=== PATIENT | female | born 1950 | race Two or more races ===

== ENCOUNTER 2025-03-03 22:24 | Inpatient (IN) | payer MEDICARE, MEDICAID ==
[~2025-03-03] VITALS: Ht 147.3 cm; Wt 63.1 kg
[2025-03-03 23:04] LABS: Basophils # (auto) 0.1 10 ^3/uL (0-0.2); Basophils % (auto) 0.8 % (0.0-2.0); Eosinophils # (auto) 0.2 10 ^3/uL (0-0.8); Eosinophils % (auto) 2.5 % (0.0-7.0); Hematocrit 47.2 % (36.0-46.0); Hemoglobin 15.9 g/dL (12.2-16.2); Lymphocytes # (auto) 3.4 10 ^3/uL (0.4-5.4); Lymphocytes % (auto) 45.3 % (10.0-50.0); Mean Corpuscular Hemoglobin 31.6 pg (28.0-32.0); Mean Corpuscular Hgb Conc. 33.8 g/dL (32.0-36.0); Mean Corpuscular Volume 93.5 fL (80.0-100.0); Monocytes # (auto) 0.4 10 ^3/uL (0-1.3); Monocytes % (auto) 5.9 % (0.0-12.0); Neutrophils # (auto) 3.4 10 ^3/uL (1.6-8.6); Neutrophils % (auto) 45.5 % (37.0-80.0); Platelet Count (auto) 129 10^3/uL (140-450); Red Blood Cells 5.05 10^6/uL (4.0-5.20); Red Cell Distribution Width 14.5 % (11.8-14.3); White Blood Cell 7.5 10^3/uL (4.4-10.8)
[2025-03-03 23:10] LABS: Potassium 4.2 mmol/L (3.5-5.1)
[2025-03-03 23:11] LABS: Anion Gap 7 (5-15); Calcium 9.4 mg/dL (8.7-10.4); Carbon Dioxide 23 mmol/L (20-31)
[2025-03-03 23:12] LABS: Chloride 93 mmol/L (98-107); Sodium 123 mmol/L (136-145)
[2025-03-03 23:16] LABS: BUN/Creatinine Ratio 8.1 (10.0-20.0); Blood Urea Nitrogen 9 mg/dL (9-23)
[2025-03-03 23:18] LABS: Glucose 518 mg/dL (74-106)
--- NOTE | 2025-03-03 23:23 | DVH ---
CHEST RADIOGRAPH Indication: chest pain Technique: Single frontal view of the chest was obtained Comparison: None FINDINGS: Lines and Tubes: None Lungs: Clear Pleura: No effusion. No pneumothorax. Cardiomediastinal contours: Postsurgical changes of the mediastinum. Bones: Unremarkable IMPRESSION: Clear lungs.
--- NOTE | 2025-03-03 23:59 | ED.PDOC ---
History of Present Illness HPI Comments 74-year-old woman with a history of coronary artery disease status post CABG who presents with 1 day of left-sided intermittent 7/10 sharp chest pain associated with shortness of breath and generalized weakness. The pain occurs at rest. 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 She denies any fever chills nausea vomiting diarrhea dysuria or polyuria sick contacts or recent travel Chief Complaint: Chest Pain Time Seen by MD: 22:28 Primary Care Provider: ASIYA Allergies: Coded Allergies: Sulfa Antibiotics (Verified Allergy, Severe, 03/03/25) Mode of Arrival: Wheelchair Past Medical History PAST MEDICAL HISTORY: Arthritis, DM, HTN Surgical History: Denies all surgeries HAIR CLIPPER POWER History: No Pertinent HAIR CLIPPER POWER History Family History Family History: Unknown Social History Smoker: Non-Smoker Alcohol: Denies ETOH Use Drugs: Denies Drug Use All Other Systems: Reviewed and Negative Physical Exam General Appearance: Normal HEENT: Pharynx Normal Neck: Normal Inspection Respiratory: No Respiratory Distress Cardiovascular: No Edema Breast Exam: Deferred Gastrointestinal: NOT DONE Genitalia: Deferred Pelvic: Deferred Rectal: Deferred Extremities: No pedal edema Neurologic: No Motor Deficits Cerebellar Function: NOT DONE Reflexes: NOT DONE Skin: Normal Color Lymphatic: NOT DONE Was a procedure done? Was a procedure done?: No Differential Dx Considerations may include: ACS, CVA, pneumonia, viral syndrome X-Ray, Labs, Meds, VS Vital Signs Date Time Temp Pulse Resp B/P (MAP) Pulse Ox O2 Delivery O2 Flow Rate FiO2 03/03/25 23:31 65 03/03/25 22:32 66 03/03/25 22:29 98.3 68 16 127/70 (89) 9 98.3 Lab Test 03/03/25 23:48 03/03/25 22:41 Range/Units Troponin I High Sensitivity Pending 4 </=34 ng/L White Blood Count 7.5 4.4-10.8 10^3/uL Red Blood Count 5.05 4.0-5.20 10^6/uL Hemoglobin 15.9 12.2-16.2 g/dL Hematocrit 47.2 H 36.0-46.0 % Mean Corpuscular Volume 93.5 80.0-100.0 fL Mean Corpuscular Hemoglobin 31.6 28.0-32.0 pg Mean Corpuscular Hemoglobin Concent 33.8 32.0-36.0 g/dL Red Cell Distribution Width 14.5 H 11.8-14.3 % Platelet Count 129 L 140-450 10^3/uL Mean Platelet Volume 8.4 6.9-10.8 fL Neutrophils (%) (Auto) 45.5 37.0-80.0 % Lymphocytes (%) (Auto) 45.3 10.0-50.0 % Monocytes (%) (Auto) 5.9 0.0-12.0 % Eosinophils (%) (Auto) 2.5 0.0-7.0 % Basophils (%) (Auto) 0.8 0.0-2.0 % Neutrophils # (Auto) 3.4 1.6-8.6 10 ^3/uL Lymphocytes # (Auto) 3.4 0.4-5.4 10 ^3/uL Monocytes # (Auto) 0.4 0-1.3 10 ^3/uL Eosinophils # (Auto) 0.2 0-0.8 10 ^3/uL Basophils # (Auto) 0.1 0-0.2 10 ^3/uL Nucleated Red Blood Cells 0.0 % Sodium Level 123 L 136-145 mmol/L Potassium Level 4.2 3.5-5.1 mmol/L Chloride Level 93 L 98-107 mmol/L Carbon Dioxide Level 23 20-31 mmol/L Anion Gap 7 5-15 Blood Urea Nitrogen 9 9-23 mg/dL Creatinine 1.11 H 0.550-1.02 mg/dL Glomerular Filtration Rate Calc 52 >90 mL/min BUN/Creatinine Ratio 8.1 L 10.0-20.0 Serum Glucose 518 *H 74-106 mg/dL Calcium Level 9.4 8.7-10.4 mg/dL Time of 1ST Reevaluation: 23:57 Reevaluation 1ST: Unchanged Patient Education/Counseling: Diagnosis, Treatment Family Education/Counseling: No Family Present Departure 1 Departure Time of Disposition: 23:57 (Patient presented with chest pain that was concerning for possible STEMI, ACS, PE, Pneumonia, Muscle Strain, COPD, Dissection. Data: 1. I ordered and reviewed the result of at least 3 labs including a CBC, BMP, and Troponin. 2. I independently interpreted the following tests: EKG which shows sinus arrhythmia and Chest X-ray which shows benign chest.Risk:This patient has a high risk of morbidity due to further diagnostic testing or treatment and may suffer from an acute cardiac or respiratory disorder. Workup reveals concern for ACS, uncontrolled diabetes, hyponatremia and patient should be admitted for further workup and possible expert consultation. ) Impression: Primary Impression: Acute chest pain Additional Impressions: Hyponatremia Hyperglycemia Shortness of breath Disposition: ADMITTED INPATIENT Admit to: Tele Condition: Guarded Critical Care Note Critical Care Time?: Yes Critical care comment: Acute chest pain Authorized and Performed by: Elysia Del Rosario MD Total critical care time: Approximately 48 minutes Due to a high probability of clinically significant, life threatening deterioration, the patient required my highest level of preparedness to intervene emergently and I personally spent this critical care time directly and personally managing the patient. This critical care time included obtaining a history; examining the patient; pulse oximetry; ordering and review of studies; arranging urgent treatment with development of a management plan; evaluation of patient's response to treatment; frequent reassessment; and, discussions with other providers. This critical care time was performed to assess and manage the high probability of imminent, life-threatening deterioration that could result in multi-organ failure. It was exclusive of separately billable procedures and treating other patients and teaching time. Please see my other sections and the rest of the note for further information on patient assessment and treatment. Stability Stability form required: No Heart Score Heart Score: Heart Score Response (Comments) Value History Moderate Suspicious 1 EKG Repolarization Disturb 1 Age >65 2 Risk Factors >3 or Hx ASHD 2 Troponin 1-2 x's Normal limit 1 Total 7 ELYSIA DEL ROSARIO MD Mar 03, 2025 23:59
[2025-03-04] VITALS (16 sets, daily range): BP systolic 115–178; BP diastolic 44–73; PULSE 55–89; RESP 7–20; TEMP 97.1–98.3; O2SAT 95–98
[2025-03-04] MEDS: SODIUM CHLORIDE 0.9% 1,000 ML IV ONE
[2025-03-04] MEDS ORDERED: ONDANSETRON HCL 4 MG/2 ML VIAL IV PRN (00:30)
[2025-03-04] MEDS ORDERED: DEXTROSE (50%) 50ML SYRG IV PRN (00:30)
[2025-03-04] MEDS ORDERED: NITROGLYCERIN 0.4 MG SL TAB SL PRN (00:30)
[2025-03-04] MEDS ORDERED: ALBUTEROL SULF 2.5 MG/0.5ML(0.5%) NEB SOLN NEB PRN (00:30)
[2025-03-04] MEDS ORDERED: MORPHINE SULFATE INJ 2 MG/ml SYRG IV PRN (00:30)
[2025-03-04] MEDS: InsuLIN REG 1unit/0.01ml Soln (100units/ml) IV ONE (02:56)
--- NOTE | 2025-03-04 03:16 | ECG ---
[facility] Test Date: 2025-03-03 Test Time: 23:31:57 Pat Name: DANTE HERRERA Department: ED Room: 0251T Gender: F Purchasing Specialist: MINDY : 1950 Requested By: ELYSIA ALCARAZ Order Number: [id number] Reading MD: Erik Moore Measurements Intervals [place] Rate: 65 P: 30 NM: 159 QRS: -72 QRSD: 95 T: 84 QT: 396 QTc: 412 Interpretive Statements Sinus rhythm Inferior infarct, old Anterior infarct, old Electronically Signed On 03-04-2025 9:35:31 PDT by Erik Moore Please click the below link to view image of tracing.
--- NOTE | 2025-03-04 03:17 | ECG ---
[facility] Test Date: 2025-03-04 Test Time: 01:29:39 Pat Name: DANTE HERRERA Department: ED Room: 0251T Gender: F Test Preparation Tutor: MINDY : 1950 Requested By: ELYSIA ALCARAZ Order Number: [id number] Reading MD: Erik Moore Measurements Intervals [place] Rate: 61 P: 17 [place]: 162 QRS: -63 QRSD: 94 T: 77 QT: 428 QTc: 431 Interpretive Statements Sinus rhythm Inferior infarct, old Anterior infarct, old Electronically Signed On 03-04-2025 9:35:39 PDT by Erik Moore Please click the below link to view image of tracing.
[2025-03-04 03:57] LABS: Urine Bacteria FEW /hpf (None Seen); Urine Blood Negative /uL (Negative); Urine Clarity Clear (Clear); Urine Color Colorless (Yellow); Urine Protein, UAD Negative (Negative); Urine Specific Gravity 1.021 (1.001-1.035); Urine Squamous Epithelial Cell FEW /hpf (<5); Urine Urobilinogen Normal (Negative); Urine WBC 39 /HPF (0-5)
--- NOTE | 2025-03-04 04:13 | DVHHP2 ---
History of Present Illness Reason for Visit: Chest pain History of Present Illness 74-year-old female presents for evaluation of chest pain. Patient endorses a one day history of left-sided sharp nonradiating chest pain with associated fatigue shortness for breath. Denies nausea or vomiting. No cough or fever. No other acute complaints. Past Medical History Diabetes mellitus, CAD, hypertension Family History Noncontributory Smoke: No ALCOHOL: none Drugs: None Lives: with Family Review of Systems Review of Systems Review of systems are currently negative otherwise addressed in HPI. Allergies: Coded Allergies: Sulfa Antibiotics (Verified Allergy, Severe, 03/03/25) Medications Current Medications Medications Dose Ordered Sig/Yadi Route Start Time Stop Time Status Last Admin Dose Admin Metoprolol Tartrate 25 mg BID PO 03/04/25 10:00 Atorvastatin Calcium 80 mg HS PO 03/04/25 22:00 Albuterol 2.5 mg Q6HPRN PRN NEB 03/04/25 00:30 Memantine 10 mg Q12HR PO 03/04/25 10:00 Aspirin 81 mg DAILY PO 03/04/25 10:00 Diagnostic Test (Pha) 1 strip IQ4HR 03/04/25 04:00 Insulin Human Regular IQ4HR SC 03/04/25 04:00 Dextrose 50 ml UD PRN IV 03/04/25 00:30 Ondansetron HCl 4 mg Q4HP PRN IV 03/04/25 00:30 Acetaminophen 650 mg Q6HP PRN PO 03/04/25 00:30 Nitroglycerin 0.4 mg Q5MINP PRN SL 03/04/25 00:30 Morphine Sulfate 2 mg Q30M PRN IV 03/04/25 00:30 Exam Vital Signs Vital Signs Date Time Temp Pulse Resp B/P (MAP) Pulse Ox O2 Delivery O2 Flow Rate FiO2 03/04/25 03:23 98.1 72 18 132/97 (109) 96 98.1 03/04/25 01:40 21 03/04/25 01:00 Nasal Cannula* 1 Exam Gen: 74-year-old female in no apparent distress Skin: Warm, dry, normal color and texture, no rash. HEENT: Normocephalic atraumatic, mucous membranes moist and pink. Neck: Cervical and supraclavicular nodes normal without enlargement, trachea is midline, thyroid gland is normal without masses. Pulmonary: Clear to auscultation and percussion bilaterally. Cardiac: Regular rate and rhythm. No murmur Abdomen: Soft, nontender, nondistended, bowel sounds present all 4 quadrants, no guarding, no rigidity, no organomegaly. Extremities: No cyanosis, clubbing, no edema Neuro: Cranial nerves II through XII grossly intact, normal affect and speech, no focal motor deficits. Labs/Xrays ORDERING PHYSICIAN: ELYSIA ALCARAZ MD PROCEDURE(s): CXRP - CHEST PORTABLE REASON: chest pain ORDER NUMBER(s): [id number], ACCESSION NUMBER(s): [id number] CHEST RADIOGRAPH Indication: chest pain Technique: Single frontal view of the chest was obtained Comparison: None FINDINGS: Lines and Tubes: None Lungs: Clear Pleura: No effusion. No pneumothorax. Cardiomediastinal contours: Postsurgical changes of the mediastinum. Bones: Unremarkable IMPRESSION: Clear lungs. Labs Test 03/04/25 03:30 03/04/25 02:06 03/04/25 01:36 03/03/25 22:41 Range/Units POC Glucose 427 *H 70-106 mg/dl Troponin I High Sensitivity 5 </=34 ng/L White Blood Count 7.5 4.4-10.8 10^3/uL Red Blood Count 5.05 4.0-5.20 10^6/uL Hemoglobin 15.9 12.2-16.2 g/dL Hematocrit 47.2 H 36.0-46.0 % Mean Corpuscular Volume 93.5 80.0-100.0 fL Mean Corpuscular Hemoglobin 31.6 28.0-32.0 pg Mean Corpuscular Hemoglobin Concent 33.8 32.0-36.0 g/dL Red Cell Distribution Width 14.5 H 11.8-14.3 % Platelet Count 129 L 140-450 10^3/uL Mean Platelet Volume 8.4 6.9-10.8 fL Neutrophils (%) (Auto) 45.5 37.0-80.0 % Lymphocytes (%) (Auto) 45.3 10.0-50.0 % Monocytes (%) (Auto) 5.9 0.0-12.0 % Eosinophils (%) (Auto) 2.5 0.0-7.0 % Basophils (%) (Auto) 0.8 0.0-2.0 % Neutrophils # (Auto) 3.4 1.6-8.6 10 ^3/uL Lymphocytes # (Auto) 3.4 0.4-5.4 10 ^3/uL Monocytes # (Auto) 0.4 0-1.3 10 ^3/uL Eosinophils # (Auto) 0.2 0-0.8 10 ^3/uL Basophils # (Auto) 0.1 0-0.2 10 ^3/uL Nucleated Red Blood Cells 0.0 % Sodium Level 123 L 136-145 mmol/L Potassium Level 4.2 3.5-5.1 mmol/L Chloride Level 93 L 98-107 mmol/L Carbon Dioxide Level 23 20-31 mmol/L Anion Gap 7 5-15 Blood Urea Nitrogen 9 9-23 mg/dL Creatinine 1.11 H 0.550-1.02 mg/dL Glomerular Filtration Rate Calc 52 >90 mL/min BUN/Creatinine Ratio 8.1 L 10.0-20.0 Serum Glucose 518 *H 74-106 mg/dL Calcium Level 9.4 8.7-10.4 mg/dL Assessment/Plan Assessment/Plan Assessment Chest pain rule out ACS Uncontrolled diabetes mellitus Hypertension Plan Admit the patient to telemetry to the hospitalist Echocardiogram pending Resume home medications Continue treatment per orders. Plan discussed with: Patient My Orders Orders - YUN RICHARDSON AGACNLisa Procedure Category Date Status Time Metoprolol Tartrate PHA 03/04/25 In Process Tablet (Lopressor Ta 10:00 Atorvastatin (Lipitor) PHA 03/04/25 In Process 22:00 Albuterol Medneb PHA 03/04/25 In Process (Ventolin Medneb) 00:30 Memantine Tablet PHA 03/04/25 In Process (Namenda Tablet) 10:00 Aspirin Tablet PHA 03/04/25 In Process 10:00 Basic Metabolic Panel LAB 03/05/25 Verified 04:00 Glucose Blood PHA 03/04/25 In Process (Accu-Chek Comfort 04:00 Insulin R (Human) PHA 03/04/25 In Process (Insulin R) 04:00 Dextrose 50% Syringe PHA 03/04/25 In Process 00:30 Admit ADMIT 03/04/25 Transmitted 00:24 Ondansetron Hcl PHA 03/04/25 In Process (Zofran) 00:30 Cardiac DIET 03/04/25 Transmitted Diet-2gna,Lofat,Lochol Breakfast Echo 2d Mode Cardiac US 03/04/25 Logged DOP 00:24 Condition: Fair [facility] 03/04/25 In Process 00:24 Acetaminophen Tablet PHA 03/04/25 In Process (Tylenol Tablet) 00:30 Bedrest With Bathroom [facility] 03/04/25 In Process Privileg 00:24 Nitroglycerin [facility] 03/04/25 In Process Sublingual (Ntrostat 00:30 Morphine Sulfate PHA 03/04/25 In Process Injection 00:30 Stat Ekg For Chest [facility] 03/04/25 In Process Pain 00:24 Notify Md Of Changes [facility] 03/04/25 In Process From Base 00:24 Fishing Rod Marker For [facility] 03/04/25 In Process 24 Hours 00:24 Emergency Dysrhythmia [facility] 03/04/25 In Process Protocol 00:24 Rhythm Strips Once [facility] 03/04/25 In Process Every Shift 00:24 Oxygen By Nasal RT 03/04/25 Transmitted Cannula 00:24 Date of Service: Mar 04, 2025 Billing Provider: YUN RICHARDSON Common Visit Codes: [id number] INP/OBS CARE (MOD) YUN RICHARDSON Mar 04, 2025 04:13
[2025-03-04] MEDS: InsuLIN REG 1unit/0.01ml Soln (100units/ml) SC SCH (04:28)
[2025-03-04] MEDS: ACCU-CHEK COMFORT CURVE STRIP VI SCH (04:29)
[2025-03-04 04:39] LABS: HDL Cholesterol 53 mg/dL (40-59)
[2025-03-04 04:40] LABS: Cholesterol 199 mg/dL (< 200)
[2025-03-04 04:47] LABS: LDL Cholesterol 124 mg/dL (< 100); Triglycerides 175 mg/dL (< 150)
[2025-03-04] MEDS: cloNIDine HCL 0.1 MG TAB PO ONE (05:45)
[2025-03-04] MEDS ORDERED: METF-372 PO (05:54)
[2025-03-04] MEDS ORDERED: RISP4TAB53 PO (05:56)
[2025-03-04] MEDS ORDERED: DICL50TA2 PO (05:56)
[2025-03-04] MEDS ORDERED: MET25T PO (05:56)
[2025-03-04] MEDS ORDERED: DAPA1TAB4 PO (05:56)
[2025-03-04] MEDS ORDERED: ATOR-47 PO (05:56)
[2025-03-04] MEDS ORDERED: TRAZ-227 PO (05:56)
[2025-03-04] MEDS ORDERED: CARB0.5D8 EACHEYE (05:58)
[2025-03-04] MEDS ORDERED: ASPI-543 PO (05:58)
[2025-03-04] MEDS ORDERED: FERR325T24 PO (05:58)
[2025-03-04] MEDS ORDERED: DOCU-94 PO (05:58)
[2025-03-04] MEDS ORDERED: DIVA1TAB37 PO (05:58)
[2025-03-04] MEDS: MEMANTINE HCL 5 MG TAB PO SCH (09:45)
[2025-03-04] MEDS: ASPirin 81 mg TAB PO SCH (09:45)
[2025-03-04] MEDS: METOPROLOL TARTRATE 25 MG TAB PO SCH (09:46)
--- NOTE | 2025-03-04 12:07 | DVHPN2 ---
Subjective 74-year-old female with a history of type 2 diabetes, hypertension, coronary artery disease status post CABG comes with a chief complaint of chest pain for the last 4 days Troponins are negative Changes from previous H/P or p: Changes Objective Vitals Vital Signs Date Time Temp Pulse Resp B/P (MAP) Pulse Ox O2 Delivery O2 Flow Rate FiO2 03/04/25 09:46 64 132/44 03/04/25 09:00 97.6 16 95 97.6 03/04/25 08:00 Room Air* 0 21 Intake/Output Intake and Output 03/04/25 07:00 Intake Total 0 ml Balance 0 ml Intake Oral 0 ml General Appearance: Alert, Oriented X3, Cooperative, No acute distress Lungs: Clear to auscultation, Normal air movement Cardiovascular: Regular rate, Normal S1, Normal S2, No murmurs Abdomen: Normal bowel sounds, Soft, No tenderness Extremities: No edema Medications Current Medications Medications Dose Ordered Sig/Yadi Route Start Time Stop Time Status Last Admin Dose Admin Metoprolol Tartrate 25 mg BID PO 03/04/25 10:00 03/04/25 09:46 25 MG Atorvastatin Calcium 80 mg HS PO 03/04/25 22:00 Albuterol 2.5 mg Q6HPRN PRN NEB 03/04/25 00:30 Memantine 10 mg Q12HR PO 03/04/25 10:00 03/04/25 09:45 10 MG Aspirin 81 mg DAILY PO 03/04/25 10:00 03/04/25 09:45 81 MG Diagnostic Test (Pha) 1 strip IQ4HR 03/04/25 04:00 03/04/25 11:59 1 STRIP Insulin Human Regular IQ4HR SC 03/04/25 04:00 03/04/25 11:59 8 UNITS Dextrose 50 ml UD PRN IV 03/04/25 00:30 Ondansetron HCl 4 mg Q4HP PRN IV 03/04/25 00:30 Acetaminophen 650 mg Q6HP PRN PO 03/04/25 00:30 Nitroglycerin 0.4 mg Q5MINP PRN SL 03/04/25 00:30 Morphine Sulfate 2 mg Q30M PRN IV 03/04/25 00:30 Laboratory Results Laboratory Tests 03/03/25 22:41 Chemistry Test 03/03/25 22:41 Calcium Level 9.4 mg/dL (8.7-10.4) Lipid panel Test 03/04/25 01:36 Cholesterol Level 199 mg/dL (< 200) HDL Cholesterol 53 mg/dL (40-59) Triglycerides Level 175 mg/dL (< 150) H HgA1c, TSH Test 03/03/25 22:41 03/04/25 01:36 Hemoglobin A1c > 14.0 % A1C (<5.7) H Thyroid Stimulating Hormone (TSH) 2.32 uIU/mL (0.55-4.78) Urinalysis Test 03/04/25 03:30 Urine Color Colorless (Yellow) Urine Clarity Clear (Clear) Urine pH 6.0 (5.0-9.0) Urine Specific [place] 1.021 (1.001-1.035) Urine Protein Negative (Negative) Urine Ketones Negative (Negative) Urine Blood Negative /uL (Negative) Urine Nitrite Negative (Negative) Urine Bilirubin Negative (Negative) Urine Urobilinogen Normal mg/dL (Negative) Urine Leukocyte Esterase 2+ /uL (Negative) Urine RBC 5 /hpf (0 - 4) Urine Microscopic WBC 39 /HPF (0-5) H Urine Squamous Epithelial Cells Few /hpf (<5) Urine Bacteria Few /hpf (None Seen) H Urine Glucose 4+ mg/dL (Normal) H Assessment/Plan Assessment/Plan Chest pain rule out acute coronary syndrome History of CAD with CABG Type 2 diabetes Hypertension Mixed hyperlipidemia Plan Cardiology consult Aspirin Lipitor Insulin Resume the home medications Monitor closely Full code Advance directives discussed for 20 minutes Plan discussed with: Patient My Orders Orders - RAF ORTEZ MD Procedure Category Date Status Time * Cardiology Consult CONS 03/04/25 Transmitted 11:26 Date of Service: Mar 04, 2025 Billing Provider: RAF ORTEZ MD Common Visit Codes: [id number] INP/OBS CARE(HIGH) RAF ORTEZ MD Mar 04, 2025 12:07
--- NOTE | 2025-03-04 13:48 | DVHINCON2 ---
Date Seen: Mar 04, 2025 Referring Physician MD Gary Reason for Consultation Chest pain History of Present Illness This is a 74-year-old female patient who presents to the emergency room with chief complaint of chest pain for five days prior to emergency room arrival. Cardiology has been consulted at this time for further evaluation. The patient describes the pain as unprovoked, intermittent, stabbing in nature, and located under the left inframammary without radiation. She denies any associated symptoms. Initial twelve lead electrocardiogram reveals sinus rhythm with nonspecific ST segment changes to lateral leads. Initial troponin level of 4ng/L with flat trend thereafter. Significant past medical history includes severe coronary artery disease status post quadruple vessel CABG, hypertension, dyslipidemia, type 2 diabetes mellitus, peripheral neuropathy, arthritis, and obesity. 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 Past Medical History Past medical history reviewed. No other significant than mentioned above. Past Surgical History Quadruple vessel bypass CABG approximately six years ago per patient Family History: Patient reports no known family medical history. Family History Family history reviewed. Social History Patient has a 62 pack-year history, reports she has cut back to three cigarettes per day now Denies any illicit drug use Denies any alcohol use Allergies: Coded Allergies: Sulfa Antibiotics (Verified Allergy, Severe, 03/03/25) Home Meds Reported Medications Carboxymethylcellulose-Glyceri (REFRESH OPTIVE) 1 Ml Juanito, 1 DROP EACHEYE, #30 ML 6 Refills 03/04/25 Ferrous Sulfate (Ferrous Sulfate) 325 Mg Tab, 325 MG PO for 30 Days, MG 03/04/25 Docusate Sodium (Colace) 100 Mg Cap, 1 CAP PO, #30 CAP 03/04/25 Aspirin (Aspir-Low) 81 Mg Tab, 81 MG PO DAILY for 30 Days, MG 03/04/25 Divalproex Sodium (Divalproex Sodium Dr) 125 Mg Tab, 1 TAB PO BID 03/04/25 Risperidone (Risperidone) 4 Mg Tab, 1 TAB PO, #30 TAB 1 Refill 03/04/25 Trazodone Hcl (Trazodone Hcl) 50 Mg Tab, 0.5 TAB PO QHSP PRN for FOR INSOMNIA 03/04/25 Dapagliflozin Propanediol (Farxiga) 10 Mg Tab, 1 TAB PO DAILY 03/04/25 Diclofenac Potassium (Diclofenac Potassium) 50 Mg Tab, 1 TAB PO BID 03/04/25 Atorvastatin Calcium (ATORVASTATIN CALCIUM) 80 Mg Tab, 1 TAB PO DAILY 03/04/25 Metoprolol Tartrate (Lopressor) 25 Mg Tb, 1 TAB PO BID 03/04/25 Metformin Hydrochloride (Metformin Hcl) 1,000 Mg Tab, 1 TAB PO BID 03/04/25 Home Meds Home medications reviewed. Current Medications Current Medications Medications (Trade) Dose Ordered Sig/Yadi Route PRN Reason Start Time Stop Time Status Last Admin Metoprolol Tartrate (Lopressor Tablet) 25 mg BID PO 03/04/25 10:00 03/04/25 09:46 Atorvastatin Calcium (Lipitor) 80 mg HS PO 03/04/25 22:00 Albuterol (Ventolin Medneb) 2.5 mg Q6HPRN PRN NEB SHORTNESS OF BREATH 03/04/25 00:30 Memantine (Namenda Tablet) 10 mg Q12HR PO 03/04/25 10:00 03/04/25 09:45 Aspirin 81 mg DAILY PO 03/04/25 10:00 03/04/25 09:45 Diagnostic Test (Pha) (Accu-Chek Comfort Curve T) 1 strip IQ4HR 03/04/25 04:00 03/04/25 11:59 Insulin Human Regular (InsuLIN R) IQ4HR SC 03/04/25 04:00 03/04/25 11:59 Dextrose 50 ml UD PRN IV Blood Sugar LESS THAN 60 03/04/25 00:30 Ondansetron HCl (Zofran) 4 mg Q4HP PRN IV NAUSEA / VOMITING 03/04/25 00:30 Acetaminophen (Tylenol Tablet) 650 mg Q6HP PRN PO PAIN SCALE 1-3 OR TEMP>100.4 03/04/25 00:30 Nitroglycerin (Ntrostat Sublingual) 0.4 mg Q5MINP PRN SL FOR CHEST PAIN 03/04/25 00:30 Morphine Sulfate 2 mg Q30M PRN IV FOR CHEST PAIN 03/04/25 00:30 Review of Systems Constitutional: No symptom reported Ears, Nose, & Throat: No symptom reported Eyes: No symptom reported Neurological: No symptoms reported Pulmonary/Respiratory: No symptoms reported Cardiovascular: Chest pain Gastrointestinal: No symptom reported Genitourinary: No symptom reported Musculoskeletal: No symptom reported Skin: No symptom reported Psychiatric: No symptom reported Endocrine: No symptom reported Hematologic/Lymphatic: No symptom reported Vital Signs Vital Signs Date Time Temp Pulse Resp B/P (MAP) Pulse Ox O2 Delivery O2 Flow Rate FiO2 03/04/25 10:46 65 130/70 03/04/25 09:00 97.6 16 95 97.6 03/04/25 08:00 Room Air* 0 21 Physical Exam General Appearance: Cooperative. Obese Pulmonary/Respiratory: Clear, bilateral breaths sounds. Cardiovascular/Chest: Regular rate and rhythm. Peripheral Pulses: 2+ Radial (R). 2+ Radial (L). 2+ Pedal (R). 2+ Pedal (L) Abdominal Exam: Normal bowel sounds. Ankle Exam: Negative ankle edema Lower extremities: Negative lower extremity edema Neuro/Mental Status: A/OX4, coherent. Thoughts/Psych: Normal thought pattern. Appropriate mood and affect. Good judgment and insight. Appearance: No acute distress. Skin Exam: Normal inspection. Normal color. Warm and dry. Labs/Diagnostic Data Labs Test 03/04/25 11:58 03/04/25 03:30 03/04/25 01:36 03/03/25 22:41 Range/Units POC Glucose 305 H 70-106 mg/dl Urine Color Colorless Yellow Urine Clarity Clear Clear Urine pH 6.0 5.0-9.0 Urine Specific [place] 1.021 1.001-1.035 Urine Protein Negative Negative Urine Ketones Negative Negative Urine Blood Negative Negative /uL Urine Nitrite Negative Negative Urine Bilirubin Negative Negative Urine Urobilinogen Normal Negative mg/dL Urine Leukocyte Esterase 2+ Negative /uL Urine RBC 5 0 - 4 /hpf Urine Microscopic WBC 39 H 0-5 /HPF Urine Squamous Epithelial Cells Few <5 /hpf Urine Bacteria Few H None Seen /hpf Urine Glucose 4+ H Normal mg/dL Troponin I High Sensitivity 5 </=34 ng/L Triglycerides Level 175 H < 150 mg/dL Cholesterol Level 199 < 200 mg/dL LDL Cholesterol 124 H < 100 mg/dL HDL Cholesterol 53 40-59 mg/dL Thyroid Stimulating Hormone (TSH) 2.32 0.55-4.78 uIU/mL White Blood Count 7.5 4.4-10.8 10^3/uL Red Blood Count 5.05 4.0-5.20 10^6/uL Hemoglobin 15.9 12.2-16.2 g/dL Hematocrit 47.2 H 36.0-46.0 % Mean Corpuscular Volume 93.5 80.0-100.0 fL Mean Corpuscular Hemoglobin 31.6 28.0-32.0 pg Mean Corpuscular Hemoglobin Concent 33.8 32.0-36.0 g/dL Red Cell Distribution Width 14.5 H 11.8-14.3 % Platelet Count 129 L 140-450 10^3/uL Mean Platelet Volume 8.4 6.9-10.8 fL Neutrophils (%) (Auto) 45.5 37.0-80.0 % Lymphocytes (%) (Auto) 45.3 10.0-50.0 % Monocytes (%) (Auto) 5.9 0.0-12.0 % Eosinophils (%) (Auto) 2.5 0.0-7.0 % Basophils (%) (Auto) 0.8 0.0-2.0 % Neutrophils # (Auto) 3.4 1.6-8.6 10 ^3/uL Lymphocytes # (Auto) 3.4 0.4-5.4 10 ^3/uL Monocytes # (Auto) 0.4 0-1.3 10 ^3/uL Eosinophils # (Auto) 0.2 0-0.8 10 ^3/uL Basophils # (Auto) 0.1 0-0.2 10 ^3/uL Nucleated Red Blood Cells 0.0 % Sodium Level 123 L 136-145 mmol/L Potassium Level 4.2 3.5-5.1 mmol/L Chloride Level 93 L 98-107 mmol/L Carbon Dioxide Level 23 20-31 mmol/L Anion Gap 7 5-15 Blood Urea Nitrogen 9 9-23 mg/dL Creatinine 1.11 H 0.550-1.02 mg/dL Glomerular Filtration Rate Calc 52 >90 mL/min BUN/Creatinine Ratio 8.1 L 10.0-20.0 Serum Glucose 518 *H 74-106 mg/dL Hemoglobin A1c > 14.0 H <5.7 % A1C Calcium Level 9.4 8.7-10.4 mg/dL Assessment Chest pain, rule out coronary ischemia Coronary artery disease status post quadruple vessel CABG Hypertensive urgency Dyslipidemia Type 2 diabetes mellitus Peripheral neuropathy Obesity Tobacco use Medical noncompliance Plan/Recommendation We will continue with the following plan/recommendations (Dr. Dooley): * Transthoracic echocardiogram reveals EF 50% * Chest pain protocol * HEART score: 6 points (moderate score) * Aggressive blood pressure control as tolerated * Continue single antiplatelet therapy and lipid-lowering agent * Close Cardiac surveillance; monitor for any ECG changes * Nuclear stress test Patient seen and examined at bedside with . Thank you for allowing us to care for this patient. Please call with any questions or concerns. Critical care time spent: 43 minutes This medical document was created using an electronic medical record system with voice recognition software and computerized dictation system. Although this document has been carefully reviewed, there might still be some phonetic and typographical errors. Occasional wrong-word or ``sound-alike substitutions may have occurred due to the inherent limitations of voice recognition software. These areas are purely typographical due to imperfections of the software programs and do not reflect any compromise in the patient's medical care. Please read the chart carefully and recognize, using context, where these substitutions have occurred. Plan discussed with: Patient NYHA Physical activity limitations: NA Date of Service: Mar 04, 2025 Billing Provider: RHETT RAMOS Cardiology Common Codes: [id number] INP/OBS CARE (High) Cardiology Consultation Codes: [id number] CONSULT <45MIN RHETT RAMOS Mar 04, 2025 13:48
--- NOTE | 2025-03-04 16:01 | DVHSR ---
APPROVED REPORT EXAM: Two-dimensional and M-mode echocardiogram with Doppler and color Doppler. Blood Pressure: 141/73 mmHg INDICATION Chest Pain Surgery/Intervention CABG: RISK FACTORS Height: 4' 10", Weight: 136 DIMENSIONS LVDd4.3 (3.8-5.7cm)LA (2D)3.9 (1.9-4.0cm)Aortic Root2.9 (2.0-3.7cm) LVDs3.0 (2.5-4.0cm)LA (MM) (1.9-4.0cm)Aortic Cusp Exc1.7 (1.5-2.0cm) EF (%) 57.0 (55-70%)Rt. Atrium3.9 (1.9-4.0cm)Asc. Aorta cm IVSd1.1 (0.7-1.1cm)RV (D) (1.8-2.4cm) PWd0.9 (0.7-1.1cm) Mitral Valve MitralMitral Stenosis E wave0.80m/sMV Mean GR.mmHg A wave0.70m/sMV Peak GR.mmHg E/A ratio1.12D MVAcm2 Aortic Valve Aortic ValveAortic Stenosis V10.70m/Tanya Mean GR.4mmHg V21.30m/Tanya Peak GR.7mmHg LVOT Diameter2.1 (1.8-2.4cm)Doppler AVA1.86cm2 AI P 1/2 Sumq172.86ms Pulmonic Valve V20.80m/s Tricuspid Valve TR Velocity2.20m/s [id number] Conclusion lvef 50% by visual estimate rv not well seen left atrium enlarged no severe valve abnormaliteis noted
[2025-03-04] MEDS: ATORVASTATIN 20 MG TAB PO SCH (20:52)
[2025-03-05] VITALS (11 sets, daily range): BP systolic 93–119; BP diastolic 46–73; PULSE 57–78; RESP 16–18; TEMP 97.3–98.2; O2SAT 92–98
[2025-03-05 06:02] LABS: Chloride 104 mmol/L (98-107); Potassium 4.4 mmol/L (3.5-5.1)
[2025-03-05 06:03] LABS: Anion Gap 6 (5-15); Calcium 10.4 mg/dL (8.7-10.4); Carbon Dioxide 25 mmol/L (20-31)
[2025-03-05 06:05] LABS: Sodium 135 mmol/L (136-145)
[2025-03-05 06:08] LABS: BUN/Creatinine Ratio 21.6 (10.0-20.0); Blood Urea Nitrogen 19 mg/dL (9-23)
[2025-03-05 06:13] LABS: Glucose 189 mg/dL (74-106)
[2025-03-05] MEDS: REGADENOSON 0.4 MG/5 ML SYRG IV ONE ×2 (07:53→09:06)
[2025-03-05] MEDS: LOSARTAN POTASSIUM 25 MG TAB PO SCH (10:00)
--- NOTE | 2025-03-05 13:20 | ECG ---
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
--- NOTE | 2025-03-05 13:55 | DVH ---
BILATERAL Lower Extremity Arterial Duplex Date: 03/05/2025 12:20 PM Clinical History: r/o PAD Comparison: None Technique: Duplex Doppler evaluation including color Doppler and spectral/pulsed waveform analysis of the lower extremity arteries was performed. Finding: Occlusion of the right posterior tibial artery no velocity present. Biphasic waveforms bilaterally. Remaining velocities within normal limits. IMPRESSION: Occlusion of the right posterior tibial artery no velocity present . Biphasic waveforms bilaterally . Remaining velocities within normal limits.
--- NOTE | 2025-03-05 15:00 | DVHPN2 ---
Subjective Asymptomatic No chest pain today She had a stress test done today, result is pending Changes from previous H/P or p: No Changes Objective Vitals Vital Signs Date Time Temp Pulse Resp B/P (MAP) Pulse Ox O2 Delivery O2 Flow Rate FiO2 03/05/25 13:13 97.3 78 16 101/62 (75) 92 97.3 03/05/25 08:09 Room Air* 0 21 Intake/Output Intake and Output 03/05/25 07:00 Intake Total 1400 ml Output Total 800 ml Balance 600 ml Intake Oral 1400 ml Output Urine Total 800 ml # Voids 5 General Appearance: Alert, Oriented X3, Cooperative, No acute distress Lungs: Clear to auscultation, Normal air movement Cardiovascular: Regular rate, Normal S1, Normal S2, No murmurs Abdomen: Normal bowel sounds, Soft, No tenderness Extremities: No edema Medications Current Medications Medications Dose Ordered Sig/Yadi Route Start Time Stop Time Status Last Admin Dose Admin Metoprolol Tartrate 25 mg BID PO 03/04/25 10:00 03/04/25 20:52 25 MG Atorvastatin Calcium 80 mg HS PO 03/04/25 22:00 03/04/25 20:52 80 MG Albuterol 2.5 mg Q6HPRN PRN NEB 03/04/25 00:30 Memantine 10 mg Q12HR PO 03/04/25 10:00 03/05/25 10:51 10 MG Aspirin 81 mg DAILY PO 03/04/25 10:00 03/05/25 10:51 81 MG Diagnostic Test (Pha) 1 strip IQ4HR 03/04/25 04:00 03/05/25 11:06 1 STRIP Insulin Human Regular IQ4HR SC 03/04/25 04:00 03/05/25 11:06 4 UNITS Dextrose 50 ml UD PRN IV 03/04/25 00:30 Ondansetron HCl 4 mg Q4HP PRN IV 03/04/25 00:30 Acetaminophen 650 mg Q6HP PRN PO 03/04/25 00:30 Nitroglycerin 0.4 mg Q5MINP PRN SL 03/04/25 00:30 Morphine Sulfate 2 mg Q30M PRN IV 03/04/25 00:30 Losartan Potassium 25 mg DAILY PO 03/05/25 10:00 Laboratory Results Laboratory Tests 03/03/25 22:41 03/05/25 05:00 Chemistry Test 03/05/25 05:00 Calcium Level 10.4 mg/dL (8.7-10.4) Urinalysis Test 03/04/25 03:30 Urine Color Colorless (Yellow) Urine Clarity Clear (Clear) Urine pH 6.0 (5.0-9.0) Urine Specific [place] 1.021 (1.001-1.035) Urine Protein Negative (Negative) Urine Ketones Negative (Negative) Urine Blood Negative /uL (Negative) Urine Nitrite Negative (Negative) Urine Bilirubin Negative (Negative) Urine Urobilinogen Normal mg/dL (Negative) Urine Leukocyte Esterase 2+ /uL (Negative) Urine RBC 5 /hpf (0 - 4) Urine Microscopic WBC 39 /HPF (0-5) H Urine Squamous Epithelial Cells Few /hpf (<5) Urine Bacteria Few /hpf (None Seen) H Urine Glucose 4+ mg/dL (Normal) H Assessment/Plan Assessment/Plan Chest pain rule out acute coronary syndrome History of CAD with CABG Type 2 diabetes Hypertension Mixed hyperlipidemia Plan Cardiology consult Aspirin Lipitor Insulin Resume the home medications Monitor closely Full code Advance directives discussed for 20 minutes 03/05/2025: Stress test is done, pending Continue aspirin Lipitor Losartan Metoprolol Monitor closely Plan discussed with: Patient My Orders Orders - RAF ORTEZ MD Procedure Category Date Status Time Consistent DIET 03/05/25 Transmitted [facility]Diabetes Lunch Date of Service: Mar 05, 2025 Billing Provider: RAF ORTEZ MD Common Visit Codes: [id number] INP/OBS CARE(HIGH) RAF ORTEZ MD Mar 05, 2025 15:00
[2025-03-05] MEDS: ACETAMINOPHEN 325 MG TAB PO PRN (20:54)
[2025-03-06] VITALS (7 sets, daily range): BP systolic 99–141; BP diastolic 43–68; PULSE 54–79; RESP 17–18; TEMP 36.7; O2SAT 94–96
--- NOTE | 2025-03-06 14:16 | DVHDS2 ---
Discharge Summary Date of Admission Mar 04, 2025 at 00:24 Date of Discharge: Mar 06, 2025 Labs/Diagnostic Data: Laboratory Results Test 03/06/25 07:48 03/05/25 05:00 03/04/25 03:30 03/04/25 01:36 POC Glucose 175 mg/dl (70-106) Sodium Level 135 mmol/L (136-145) Potassium Level 4.4 mmol/L (3.5-5.1) Chloride Level 104 mmol/L (98-107) Carbon Dioxide Level 25 mmol/L (20-31) Anion Gap 6 (5-15) Blood Urea Nitrogen 19 mg/dL (9-23) Creatinine 0.88 mg/dL (0.550-1.02) Glomerular Filtration Rate Calc 69 mL/min (>90) BUN/Creatinine Ratio 21.6 (10.0-20.0) Serum Glucose 189 mg/dL (74-106) Calcium Level 10.4 mg/dL (8.7-10.4) Urine Color Colorless (Yellow) Urine Clarity Clear (Clear) Urine pH 6.0 (5.0-9.0) Urine Specific [place] 1.021 (1.001-1.035) Urine Protein Negative (Negative) Urine Ketones Negative (Negative) Urine Blood Negative /uL (Negative) Urine Nitrite Negative (Negative) Urine Bilirubin Negative (Negative) Urine Urobilinogen Normal mg/dL (Negative) Urine Leukocyte Esterase 2+ /uL (Negative) Urine RBC 5 /hpf (0 - 4) Urine Microscopic WBC 39 /HPF (0-5) Urine Squamous Epithelial Cells Few /hpf (<5) Urine Bacteria Few /hpf (None Seen) Urine Glucose 4+ mg/dL (Normal) Troponin I High Sensitivity 5 ng/L (</=34) Triglycerides Level 175 mg/dL (< 150) Cholesterol Level 199 mg/dL (< 200) LDL Cholesterol 124 mg/dL (< 100) HDL Cholesterol 53 mg/dL (40-59) Thyroid Stimulating Hormone (TSH) 2.32 uIU/mL (0.55-4.78) Test 03/03/25 22:41 White Blood Count 7.5 10^3/uL (4.4-10.8) Red Blood Count 5.05 10^6/uL (4.0-5.20) Hemoglobin 15.9 g/dL (12.2-16.2) Hematocrit 47.2 % (36.0-46.0) Mean Corpuscular Volume 93.5 fL (80.0-100.0) Mean Corpuscular Hemoglobin 31.6 pg (28.0-32.0) Mean Corpuscular Hemoglobin Concent 33.8 g/dL (32.0-36.0) Red Cell Distribution Width 14.5 % (11.8-14.3) Platelet Count 129 10^3/uL (140-450) Mean Platelet Volume 8.4 fL (6.9-10.8) Neutrophils (%) (Auto) 45.5 % (37.0-80.0) Lymphocytes (%) (Auto) 45.3 % (10.0-50.0) Monocytes (%) (Auto) 5.9 % (0.0-12.0) Eosinophils (%) (Auto) 2.5 % (0.0-7.0) Basophils (%) (Auto) 0.8 % (0.0-2.0) Neutrophils # (Auto) 3.4 10 ^3/uL (1.6-8.6) Lymphocytes # (Auto) 3.4 10 ^3/uL (0.4-5.4) Monocytes # (Auto) 0.4 10 ^3/uL (0-1.3) Eosinophils # (Auto) 0.2 10 ^3/uL (0-0.8) Basophils # (Auto) 0.1 10 ^3/uL (0-0.2) Nucleated Red Blood Cells 0.0 % Hemoglobin A1c > 14.0 % A1C (<5.7) Other Laboratory Tests 03/05/25 05:00 03/03/25 22:41 Brief Hx & Hospital Course: Final diagnoses: Chest pain most likely due to musculoskeletal origin History of CAD with CABG Type 2 diabetes Hypertension Mixed hyperlipidemia Peripheral arterial disease, occlusion of the right posterior tibial artery 74-year-old female who was admitted for chest pain and her troponins were negative Cardiology saw the patient recommended a stress test which was negative for ischemia On the ultrasound of her lower extremities she has peripheral arterial disease with occlusion of the right posterior tibial artery Cardiology recommended conservative treatment She will continue the aspirin and the rest of her home medications Follow up as an outpatient She just moved here to the area and therefore she does not have a primary care physician, she will be brought back to the discharge clinic in 1 week for follow up and to have a new PCP arranged Condition at Discharge: Stable Final Diagnosis/Problems List Chest pain rule out acute coronary syndrome History of CAD with CABG Type 2 diabetes Hypertension Mixed hyperlipidemia Peripheral arterial disease, occlusion of the right posterior tibial artery Discharge Disposition: Home SNF Discharge Will this Physician continue t: No Discharge Instruct/Medications Diet: Consistent carbohydrate, Cardiac 2g Na,low cholest Activity: No Restrictions, As Tolerated Follow Up/Referral: Discharge clinic in 1 week Establish as a new patient with Dr. Murray or Dr. Mcgrath Medications: Continue the home medications including aspirin 81 mg a day Discharge Statement: "Patient was advised to return to the ER or call 911 if any headaches, dizziness, shortness of breath, chest pain, abdominal pain, bleeding, fevers, or worsening of medical condition. Patient was counseled about treatment plan, medications, possible side effects, patientverbalized understanding. All questions were answered to the best of my ability. This discharge took greater then 30 minutes in planning, reviewing documentation, counseling the patient, and discussing with other team members." ASSESSMENT ASSESSMENT Assessment Chest pain rule out acute coronary syndrome History of CAD with CABG Type 2 diabetes Hypertension Mixed hyperlipidemia Peripheral arterial disease, occlusion of the right posterior tibial artery Date of Service: Mar 06, 2025 Billing Provider: RAF ORTEZ MD Common Visit Codes: [id number] DISCH DAY >30min RAF ORTEZ MD Mar 06, 2025 14:16
--- NOTE | 2025-03-08 10:59 | DVHSR ---
APPROVED REPORT Exam: Nuclear Stress Test BMI: 0 Stress Test Details Stress Test: Pharmacologic stress testing performed using 0.4 mg of regadenoson per 5 mL given IV ov er 10 seconds. HR Resting HR: 74 bpmMax Heart Rate (APMHR): 146.685497 bpm Max HR Achieved: 88 bpmTarget HR (85% APMHR): 124.141648 bpm % of APMHR: 60.27 Recovery HR: 77 bpm BP Resting BP: 105/60 mmHg Recovery BP: 112/52 mmHg ECG Resting ECG: Sinus Rhythm Clinical Reason for Termination: Completed protocol Nurse Comments Recieved pt. from [employer]. A/Ox4 on RA. Connected to monitor worker, VS stable. PIV flushes well. Re viewed POC. Pt. verbalized understanding of procedure including risks and side effects, agrees for st ress testing. Lexiscan stress test performed per protocol. [employer] tech administered Cardiolite. Pt. tolerated well . Pt. stable, no change on exam. VS returned to baseline. Transferred to [employer] via wheelchair w/ te ch. Stress ECG Conclusion lvef 49% minor lateral wall defect, borderline ischemia NM EXAM: Myocardial Perfusion REST/STRESS Imaging Protocol: Rest Tc-99m/Stress Tc-99m 1 day Resting Data Rest SPECT myocardial perfusion imaging was performed in supine position 45 minutes following the int ravenous injection of 10 mCi of Tc-99m Sestamibi. Time of rest injection: 08:00 Date: 03/05/2025 Time of rest imagin:45 Date: 03/05/2025 Administration Route: IV Administration Site: Left Arm Pharmacologic Stress Pharmacologic stress test was performed by injecting Regadenoson 0.4 mg IV push followed by the intra venous injection of 31.2 mCi of Tc-99m Sestamibi. Time of stress injection: 09:00 Date: 03/05/2025 Time of stress imagin:00 Date: 03/05/2025 Administration Route: IV Administration Site: Left Arm Gated Stress SPECT was performed 60 minutes after stress injection. The images were gated to evaluate regional wall motion and calculate left ventricular ejection fracti on. Stress only was performed in the Supine position. Nuclear Conclusion lvef 49% minor lateral wall defect, borderline ischemia
== END 2025-03-06 15:00 | disposition home or self-care (01) | DRG 206 ==
LOC: ER 22:24 → OVERFLOW 03-04 00:24 → TELE-EAST 03-04 04:49
PROVIDERS: ADMIT Internal Medicine Geriatric Medicine; ATTEND Internal Medicine Geriatric Medicine
DX: M94.0 Chondrocostal junction syndrome [Tietze] (principal); E87.1 Hypo-osmolality and hyponatremia; E11.65 Type 2 diabetes mellitus with hyperglycemia; I10 Essential (primary) hypertension; E78.2 Mixed hyperlipidemia; I25.10 Atherosclerotic heart disease of native coronary artery without angina pectoris; E66.9 Obesity, unspecified; E11.40 Type 2 diabetes mellitus with diabetic neuropathy, unspecified; I70.201 Unspecified atherosclerosis of native arteries of extremities, right leg; F17.210 Nicotine dependence, cigarettes, uncomplicated; I16.0 Hypertensive urgency; Z95.1 Presence of aortocoronary bypass graft; Z88.2 Allergy status to sulfonamides; Z79.82 Long term (current) use of aspirin; Z79.891 Long term (current) use of opiate analgesic; Z79.899 Other long term (current) drug therapy; Z79.84 Long term (current) use of oral hypoglycemic drugs; Z91.199 Patient's noncompliance with other medical treatment and regimen due to unspecified reason; Z68.28 Body mass index [BMI] 28.0-28.9, adult
CPT/HCPCS: 36415; 71045; 78452; 80048; 80061; 81001; 82962; 83036; 84443; 84484; 85025; 93005; 93017; 93306; 93925; 99291; G0378; J1815